=== PATIENT | male | born 1995 | race Caucasian/White ===

== ENCOUNTER 2018-04-06 11:51 | Emergency (ER) | payer OTHER ==
[~2018-04-06] VITALS: Ht 177.8 cm; Wt 97.5 kg
[2018-04-06] MEDS ORDERED: KEFLEX500 M1 PO (12:56)
[2018-04-06 13:02] VITALS: BP 144/92
== END 2018-04-06 13:02 | disposition home or self-care (01) ==
LOC: M.ERS 11:51
DX: S60.112A Contusion of left thumb with damage to nail, initial encounter (principal); L03.012 Cellulitis of left finger; X58.XXXA Exposure to other specified factors, initial encounter; Y93.89 Activity, other specified; Y92.89 Other specified places as the place of occurrence of the external cause; Y99.8 Other external cause status